=== PATIENT | male | born 1965 | race African-American/Black ===

== ENCOUNTER 2016-11-10 01:45 | Emergency (ER) | payer BC ==
[2016-11-10] MEDS ORDERED: Erythromycin Base 0.5% Ophth Oint 3.5 gm Tube ONE (02:17)
== END 2016-11-10 02:55 | disposition home or self-care (01) ==
LOC: BURERS 01:45
DX: S05.41XA Penetrating wound of orbit with or without foreign body, right eye, initial encounter (principal); S61.432A Puncture wound without foreign body of left hand, initial encounter; E11.9 Type 2 diabetes mellitus without complications; Z79.84 Long term (current) use of oral hypoglycemic drugs; Y04.8XXA Assault by other bodily force, initial encounter
CPT/HCPCS: 99283

== ENCOUNTER 2016-12-16 08:36 | Emergency (ER) | payer BC, SELFPAY ==
[2016-12-16] MEDS ORDERED: HYDROcodone/Acetaminophen 10/325 mg Tablet ONE (09:20)
[2016-12-16] MEDS ORDERED: Ibuprofen 800 MG TAB ONE (09:20)
[2016-12-16] MEDS ORDERED: AMOXicillin 250 MG CAP ONE (09:22)
== END 2016-12-16 10:00 | disposition home or self-care (01) ==
LOC: BURERS 08:36
DX: B02.9 Zoster without complications (principal); J20.9 Acute bronchitis, unspecified; R59.0 Localized enlarged lymph nodes; E11.9 Type 2 diabetes mellitus without complications; Z79.84 Long term (current) use of oral hypoglycemic drugs
CPT/HCPCS: 99283

== ENCOUNTER 2022-01-02 19:44 | Emergency (ER) | payer SELFPAY ==
[2022-01-02 21:04] LABS: ALT (SGPT) 29 U/L (8-55); AST (SGOT) 25 U/L (5-34); Albumin 4.1 g/dL (3.5-5.0); Alkaline Phosphatase 93 U/L (40-110); Anion Gap 15 mmol/L (10-20); BUN (Urea Nitrogen) 28 mg/dL (8.4-25.7); Bilirubin, Total 0.5 mg/dL (0.2-1.2); Calc. Creatinine Clearance 0 mL/min (70-130); Calcium 9.5 mg/dL (7.8-10.44); Carbon Dioxide 25 mmol/L (22-29); Chloride 102 mmol/L (98-107); Estimated GFR 25; Globulin 3.7 g/dL (2.4-3.5); Glucose 122 mg/dL (70-105); Potassium 4.5 mmol/L (3.5-5.1); Protein, Total 7.8 g/dL (6.0-8.3); Sodium 137 mmol/L (136-145)
[2022-01-02 21:07] LABS: #Basophils 0.1 thou/uL (0.0-0.2); #Eosinphils 0.3 thou/uL (0.0-0.7); #Lymphocytes 2.1 thou/uL (1.20-3.40); #Monocytes 0.7 thou/uL (0.11-0.59); #Neutrophils 3.9 thou/uL (1.40-6.50); %Basophils 1.6 % (0.0-1.0); %Eosinophils 4.5 % (0.0-10.0); %Lymphocytes 29.3 % (21.0-51.0); %Monocytes 9.4 % (0.0-10.0); %Neutrophils 55.3 % (42.0-75.0); Hemoglobin 11.3 g/dL (14.0-18.0); Mean Corpuscular Hemoglobin 22.8 pg (27.0-31.0); Mean Corpuscular Volume 71.3 fL (78.0-98.0); Mean Platelet Volume 7.8 fL (7.4-10.4); Platelet Count 195 thou/uL (130-400); RBC Distribution Width 14.5 % (11.5-14.5); Red Blood Cell (RBC) Count 4.95 mill/uL (4.70-6.10); White Blood Cell (WBC) Count 7.1 thou/uL (4.8-10.8)
[2022-01-02 22:42] LABS: Bilirubin Negative (Negative); Blood, Urine Small (Negative); Clarity Clear (Clear); Glucose, Urine (Dipstick) 500 mg/dL (Negative); Ketone, Urine Trace mg/dL (Negative); Leukocyte Small (Negative); Nitrite Negative (Negative); Protein, Urine (Dipstick) Trace mg/dL (Neg-Trace); Urobilinogen 0.2 mg/dL (Less than 2)
[2022-01-02 22:55] LABS: Bacteria/HPF Rare-Few HPF (None Seen); RBC/HPF 0-3 HPF (0-3); WBC/HPF Greater Than 50 HPF (0-3)
[2022-01-02] MEDS ORDERED: Cephalexin 250 MG CAP ONE (23:06)
== END 2022-01-02 23:40 | disposition home or self-care (01) ==
LOC: BURERS 19:44
DX: E86.0 Dehydration (principal); N39.0 Urinary tract infection, site not specified; D64.9 Anemia, unspecified; N28.9 Disorder of kidney and ureter, unspecified; E11.9 Type 2 diabetes mellitus without complications
CPT/HCPCS: 36416; 80053; 81003; 81015; 85025; 87086; 96360

== ENCOUNTER 2022-08-26 16:33 | Emergency (ER) | payer OTHER, SELFPAY ==
[2022-08-26] MEDS ORDERED: Ibuprofen 800 MG TAB ONE (16:50)
[2022-08-26] MEDS ORDERED: Cyclobenzaprine 10 MG TAB ONE (16:56)
== END 2022-08-26 16:59 | disposition home or self-care (01) ==
LOC: BURERS 16:33
DX: S16.1XXA Strain of muscle, fascia and tendon at neck level, initial encounter (principal); S39.012A Strain of muscle, fascia and tendon of lower back, initial encounter; S29.012A Strain of muscle and tendon of back wall of thorax, initial encounter; E11.9 Type 2 diabetes mellitus without complications; V43.52XA Car driver injured in collision with other type car in traffic accident, initial encounter; Y92.410 Unspecified street and highway as the place of occurrence of the external cause; Z79.4 Long term (current) use of insulin; Z79.84 Long term (current) use of oral hypoglycemic drugs
CPT/HCPCS: 99283